=== PATIENT | male | born 1960 | race Caucasian/White ===

== ENCOUNTER 2017-03-05 13:18 | Emergency (ER) | payer MEDICAID ==
--- NOTE | 2017-03-05 14:11 | EDM.PDOC ---
ED HPI GENERAL MEDICAL PROBLEM - General Chief Complaint: Upper Extremity Injury/Pain Stated Complaint: LEFT SHOULDER PAIN Time Seen by Provider: 03/05/17 13:53 Source of Information: Reports: Patient History Limitations: Reports: No Limitations - History of Present Illness INITIAL COMMENTS - FREE TEXT/NARRATIVE: Patient is a 56-year-old male who presents ED complaining of left lateral posterior shoulder pain. Patient fell 2 days ago on the ice landing on his back and affected shoulder. Since then he's been expressing pain to the left shoulder. Has limited range of motion secondary to pain. No sensory deficits distally. Was evaluated yesterday at the [facility] with x-rays obtained with no bony abnormalities present. He was instructed to use anti- inflammatories to which she has with no relief. He presents to the ED with worsening pain. History of surgery to the left shoulder for rotator cuff tear. This occurred in 2001. Pain is moderate in severity. Denies any additional complaints. Left Shoulder Pain Score (Numeric/FACES): 10 - Related Data Allergies Allergy/AdvReac Type Severity Reaction Status Date / Time No Known Allergies Allergy Verified 03/05/17 13:46 Home Meds: Home Meds Acetaminophen/HYDROcodone [[place] 325-5 MG] 1 tab PO Q6H PRN #8 tablet 03/05/17 [ Rx] Past Medical History Musculoskeletal History: Reports: Arthritis, Other (See Below) Other Musculoskeletal History: left shoulder arthritis - Past Surgical History Musculoskeletal Surgical History: Reports: Shoulder Surgery Other Musculoskeletal Surgeries/Procedures:: left shoudler wires placed Social & Family History - Tobacco Use Smoking Status *Q: Current Every Day Smoker Years of Tobacco use: 42 Packs/Tins Daily: 1 - Caffeine Use Caffeine Use: Reports: Coffee, Soda, Tea - Recreational Drug Use Recreational Drug Use: No Review of Systems - Review of Systems Review Of Systems: See Below Musculoskeletal: Reports: Shoulder Pain, Back Pain. Denies: Neck Pain Skin: Reports: No Symptoms Neurological: Reports: No Symptoms ED EXAM, GENERAL - Physical Exam Exam: See Below Exam Limited By: No Limitations General Appearance: Alert, WD/WN, Mild Distress Ears: Hearing Grossly Normal Nose: Normal Inspection Throat/Mouth: Normal Voice, No Airway Compromise Head: Atraumatic, Normocephalic Neck: Normal Inspection, Supple, Non-Tender, Full Range of Motion Respiratory/Chest: No Respiratory Distress, No Accessory Muscle Use Cardiovascular: Normal Peripheral Pulses Peripheral Pulses: 4+: Radial (L) Extremities: Normal Inspection, Limited Range of Motion (Active range of motion intact with only minimal decrease noted. He is able to lift arm above the shoulder and hold it in place without dropping. He is also able to to reach behind his back with no noticeable changes in comparison to the right. Patient has full passive range of motion. Will to stretch left arm across his chest with only minimal discomfort to the posterior aspect of his shoulder. ), Other ( Large surgical incision to the lateral shoulder. Pain noted with palpation of the left scapula and posterior shoulder. No pain along the clavicle/ac joint/ anterior lateral shoulder, upper arm, elbow, forearm, wrist, or hand. ) Neurological: Alert, Oriented, CN II-XII Intact, No Motor/Sensory Deficits Psychiatric: Normal Affect, Normal Mood Skin Exam: Warm, Dry, Intact, Normal Color Course - Vital Signs Last Recorded V/S: Last Vital Signs Temp 98.0 F 03/05/17 13:46 Pulse 101 H 03/05/17 13:46 Resp 18 03/05/17 13:46 BP 121/84 03/05/17 13:46 Pulse Ox 97 03/05/17 13:46 - Orders/Labs/Meds Meds: Medications Discontinued Medications Generic Name Dose Route Start Last Admin Trade Name Clarke PRN Reason Stop Dose Admin Hydromorphone HCl 0.5 mg 03/05/17 14:14 03/05/17 14:39 Dilaudid IM 03/05/17 14:15 0.5 mg ONETIME ONE Administration Ketorolac Tromethamine 60 mg 03/05/17 14:14 03/05/17 14:40 Toradol IM 03/05/17 14:15 60 mg ONETIME ONE Administration - Re-Assessments/Exams Free Text/Narrative Re-Assessment/Exam: On examination did not believe further diagnostic testing is required. Per patient x-ray was obtained yesterday with no bony abnormalities. Will treat the pain with Dilaudid 0.5 mg IM and also Toradol 60 mg IM. Suspect cause of pain is a contusion to the scapula/shoulder. We'll discharge patient home with instructions as documented. Departure - Departure Time of Disposition: 14:15 Disposition: Home, Self-Care 01 Condition: Good Clinical Impression: Contusion of shoulder, left Qualifiers: Encounter type: initial encounter Qualified Code(s): S40.012A - Contusion of left shoulder, initial encounter Left shoulder strain Qualifiers: Encounter type: initial encounter Qualified Code(s): S46.912A - Strain of unspecified muscle, fascia and tendon at shoulder and upper arm level, left arm , initial encounter Contusion of scapula, left Qualifiers: Encounter type: initial encounter Qualified Code(s): S40.012A - Contusion of left shoulder, initial encounter - Discharge Information Prescriptions: Acetaminophen/HYDROcodone [[place] 325-5 MG] 1 tab PO Q6H PRN #8 tablet PRN Reason: Pain (Severe 7-10) Instructions: Shoulder Pain, [id number], Pain Medicine Instructions, Easy-to- Read Referrals: Darian Collado MD [Physician] - Forms: ED Department Discharge Additional Instructions: Believe this is more associated with contusion/shoulder strain. Treatment will include ibuprofen and Tylenol in alternating fashion. Refrain from any activities that cause worsening pain. Apply ice to the affected area 4 times a day, 30 minutes in duration, do not place ice directly on the skin. For severe pain take [place] one tab every [address] not drive while taking the [place] due to sedative side effects. Do not drive today since receiving a sedative medication while in the ED. Follow-up with Dr. Collado in 10-14 days if symptoms persist. Return to the ED as needed for any new or worsening symptoms
[2017-03-05] MEDS ORDERED: Ketorolac 60 MG/2 ML SDV IM ONE (14:14)
[2017-03-05] MEDS ORDERED: HYDROmorphone 0.5 MG/0.5 ML Syringe IM ONE (14:14)
== END 2017-03-05 14:45 | disposition home or self-care (01) ==
LOC: JD.ED 13:18
DX: S46.912A Strain of unspecified muscle, fascia and tendon at shoulder and upper arm level, left arm, initial encounter (principal); S40.012A Contusion of left shoulder, initial encounter; F17.210 Nicotine dependence, cigarettes, uncomplicated; Z98.890 Other specified postprocedural states; W00.0XXA Fall on same level due to ice and snow, initial encounter
CPT/HCPCS: 96372; 99283; J1170; J1885

== ENCOUNTER 2021-02-16 21:18 | Emergency (ER) | payer MEDICAID ==
[2021-02-16] MEDS ORDERED: Lidocaine 1% 10 ML MDV INJECT ONE (21:58)
--- NOTE | 2021-02-16 21:58 | EDM.PDOC ---
ED HPI GENERAL MEDICAL PROBLEM - General Chief Complaint: Head Injury Stated Complaint: HEAD LAC Time Seen by Provider: 02/16/21 21:32 Source of Information: Reports: Patient, Police, RN Notes Reviewed History Limitations: Reports: No Limitations - History of Present Illness INITIAL COMMENTS - FREE TEXT/NARRATIVE: Patient is a 60-year-old male presenting to the emergency department accompanied by the [place] chief financial officer with complaints of head injury. Patient was tackled by police and hit his head on the concrete. There was no loss of consciousness, however patient states that he feels "really tired "and has slightly blurry vision. Denies any nausea or vomiting. He also has laceration to his left eyebrow. Last tetanus vaccination was 7 years ago. Left Eye Pain Score (Numeric/FACES): 9 - Related Data Allergies Allergy/AdvReac Type Severity Reaction Status Date / Time No Known Allergies Allergy Verified 02/16/21 21:36 Past Medical History Musculoskeletal History: Reports: Arthritis, Other (See Below) Other Musculoskeletal History: left shoulder arthritis - Past Surgical History Musculoskeletal Surgical History: Reports: Shoulder Surgery Other Musculoskeletal Surgeries/Procedures:: left shoudler wires placed Social & Family History - Caffeine Use Caffeine Use: Reports: Coffee, Soda, Tea ED ROS GENERAL - Review of Systems Review Of Systems: Comprehensive ROS is negative, except as noted in HPI. ED EXAM, HEAD INJURY - Physical Exam Exam: See Below Exam Limited By: No Limitations General Appearance: Alert, WD/WN, No Apparent Distress Head: Facial Lacerations (Left eyebrow) Nexus Criteria: No: Posterior, Midline Cervical Tenderness, Evidence of Intoxication, Altered Level of Consciousness, Focal Neurological Deficit, Painful Distraction Injuries Eyes: Bilateral Eye: PERRL Neck: Non-Tender, Full Range of Motion, Normal Alignment, Normal Inspection Respiratory: No Respiratory Distress, Lungs Clear, Normal Breath Sounds, No Accessory Muscle Use, Chest Non-Tender Cardiovascular: Normal Peripheral Pulses, Regular Rate, Rhythm, No Edema, No Gallop, No JVD, No Murmur, No Rub Back Exam: Full Range of Motion, Normal Inspection, NT Extremities: Normal Inspection, Normal Range of Motion, Non-Tender, No Pedal Edema, Normal Capillary Refill Neurologic: cook apprentice pastry II-XII nml As Tested, No Motor/Sensory Deficits, Alert, Normal Mood/Affect, Oriented x 3 Skin: Normal Color, Warm/Dry - [place] Coma Score Best Eye Response ([place]): (4) Open Spontaneously Best Verbal Response ([place]): (5) Oriented Best Motor Response (Jodie): (6) Obeys Commands Jodie Total: 15 ED LACERATION/WOUND & JOBY PROC - Laceration/Wound Repair left eyebrow Lac/wound length in cm: 1.5 Appearance: Subcutaneous Anesthetic Type: Local Local Anesthesia - Lidocaine (Xylocaine): 1% Plain Local Anesthetic Volume: 2cc Skin Prep: Chlorhexidine (Hibiciens), Saline, Sterile Drape Exploration/Debridement/Repair: Wound Explored, No Foreign Material Found Closed with: Sutures Suture Size: 5-0 # of Sutures: 4 Suture Type: Nylon Sterile Dressing Applied: Nurse Tetanus Status Addressed: Yes Complications: No Course - Vital Signs Last Recorded V/S: Last Vital Signs Temp 98.3 F 02/16/21 21:31 Pulse 113 H 02/16/21 21:31 Resp 16 02/16/21 21:31 BP 116/89 02/16/21 21:31 Pulse Ox 99 02/16/21 21:31 - Orders/Labs/Meds Meds: Medications Discontinued Medications Generic Name Dose Route Start Last Admin Trade Name Freq PRN Reason Stop Dose Admin Lidocaine HCl 10 ml 02/16/21 21:58 02/16/21 23:06 Lidocaine 1% 10 Ml Mdv INJECT 02/16/21 21:59 10 ml ONETIME ONE Administration - Re-Assessments/Exams Free Text/Narrative Re-Assessment/Exam: Is a 60-year-old male presenting to the emergency department for evaluation of head injury after being tackled by police in pursuit. Reports hitting his head on concrete. He has a 1.5 cm laceration to his left eyebrow. Neurologic exam is unremarkable, however he does complain of being fatigued and having slightly blurry vision. Of ordered head CT. Tetanus vaccination up-to-date per his report. Ordered lidocaine in preparation for suturing. 02/16/21 22:51 CT of the head shows no acute abnormalities. See procedure notes for wound closure. Discharge instructions as documented. Departure - Departure Time of Disposition: 22:53 Disposition: Home, Self-Care 01 Condition: Good Clinical Impression: Laceration Head injury Qualifiers: Encounter type: initial encounter Qualified Code(s): S09.90XA - Unspecified injury of head, initial encounter - Discharge Information *PRESCRIPTION DRUG MONITORING PROGRAM REVIEWED*: No *COPY OF PRESCRIPTION DRUG MONITORING REPORT IN PATIENT SANDRA: No Instructions: Head Injury, Adult, Laceration Care, Adult Referrals: PCP,None [Primary Care Provider] - Forms: ED Department Discharge Additional Instructions: You were seen in the emergency department today for a laceration to your left. The wound was cleansed and closed with 4 sutures. These should stay intact for 5 days. After that time they may be removed in the clinic by a nurse. Keep the wound clean and dry. Wash with normal soap and water twice daily. Do not submerge the wound in water. You may use Tylenol or ibuprofen as needed for discomfort. Head CT was completed and found to be normal. There is no evidence of skull fracture or bleeding within your brain. Watch for signs of infection including increased redness, swelling, or purulent drainage. If these should occur, you should be seen either in the clinic or in the emergency department as antibiotic treatment may be needed. Return to the ER as needed. Sepsis Event Note (ED) - Evaluation Sepsis Screening Result: No Definite Risk
--- NOTE | 2021-02-17 08:26 | CT ---
Head CT Technique: Multiple axial sections through the brain were obtained. Intravenous contrast was not utilized. Reconstructed coronal and sagittal images were obtained. Comparison: No prior intracranial imaging is available. Findings: Ventricles along with basal cisterns and sulci over the convexities are within normal limits for the patient's age. No abnormal parenchymal densities are seen. No evidence of intracranial hemorrhage is seen. No midline shift or mass-effect is seen. Bone window settings were reviewed. No acute calvarial abnormality is seen. Visualized mastoid sinuses and paranasal sinuses show nothing acute. Impression: 1. No acute intracranial abnormality is appreciated on noncontrast head CT study. Diagnostic code #1 I agree with preliminary report from [facility], finalized on 02/16/21, 11:46 PM TEST DESK OPERATOR, code 1
== END 2021-02-16 23:20 | disposition home or self-care (01) ==
LOC: JD.ED 21:18
DX: S09.90XA Unspecified injury of head, initial encounter (principal); S01.112A Laceration without foreign body of left eyelid and periocular area, initial encounter; Y04.0XXA Assault by unarmed brawl or fight, initial encounter
CPT/HCPCS: 12011; 70450; 70450-26; 99284-25

== ENCOUNTER 2021-09-10 13:14 | Emergency (ER) | payer MEDICARE, MEDICAID | END 2021-09-10 15:20 | disposition home or self-care (01) | LOC: JD.ED 13:14 | DX: M19.012 Primary osteoarthritis, left shoulder (principal); M10.9 Gout, unspecified; Z79.899 Other long term (current) drug therapy | CPT/HCPCS: 73060-26-LT; 73060-LT; 99283 ==